=== PATIENT | female | born 1960 | race Caucasian/White ===

== ENCOUNTER 2018-04-07 10:56 | Outpatient (CLI) | payer OTHER ==
[~2018-04-07 10:56] MED LIST: NO HOME MEDS; PHEN-873 PO
[2018-04-07 13:43] LABS: BASOPHILS # (AUTO) 0.1 X10'3 (0-0.2); BASOPHILS % (AUTO) 0.9 % (0-1); EOSINOPHILS # (AUTO) 0.3 X10'3 (0-0.9); EOSINOPHILS % (AUTO) 4.4 % (0-6); HEMATOCRIT 42.8 % (35.0-45.0); HEMOGLOBIN 14.6 g/dl (12.0-16.0); LYMPHOCYTES # (AUTO) 2.1 X10'3 (1.1-4.8); LYMPHOCYTES % (AUTO) 28.2 % (21-51); MEAN CORPUSCULAR HEMOGLOBIN 28.1 PG (27.0-31.0); MEAN CORPUSCULAR HGB CONC 34.1 % (33.0-36.5); MEAN CORPUSCULAR VOLUME 82.3 FL (78-98); MEAN PLATELET VOLUME 9.8 FL (7.4-10.4); MONOCYTES # (AUTO) 0.7 X10'3 (0-0.9); MONOCYTES % (AUTO) 8.9 % (2-12); NEUTROPHILS # (AUTO) 4.4 X10'3 (1.8-7.7); NEUTROPHILS % (AUTO) 57.6 % (42-75); PLATELET COUNT 192 X10'3 (140-440); RED BLOOD COUNT 5.19 X10'6 (4.20-5.60); RED CELL DISTRIBUTION WIDTH 13.9 % (11.5-14.5); WHITE BLOOD COUNT 7.6 X10'3 (4.5-11.0)
[2018-04-07 13:49] LABS: CLARITY,URINE CLEAR (Clear); COLOR,URINE YELLOW (Yellow); GLUCOSE, URINE NEGATIVE (Neg); KETONES,URINE NEGATIVE (Neg); LEUKOCYTE ESTERASE ,URINE NEGATIVE (Neg); NITRITES, URINE NEGATIVE (Neg); OCCULT BLOOD,URINE NEGATIVE (Neg); PH,URINE 5.5 (4.8-8.0); PROTEIN,URINE NEGATIVE (Neg); UROBILINOGEN,URINE 0.2 E.U/dL (0.2-1.0)
[2018-04-07 13:51] LABS: UA COLLECTION TYPE CLN CATCH MIDSTREAM
[2018-04-07 14:08] LABS: ALANINE AMINOTRANSFERASE 25 U/L (12-78); ALBUMIN 3.7 G/DL (3.4-5.0); ALBUMIN/GLOBULIN RATIO 0.9 (1.1-1.5); ALKALINE PHOSPHATASE 77 IU/L (46-116); ANION GAP 7 (8-16); ASPARTATE AMINO TRANSFERASE 15 U/L (10-37); BILIRUBIN,TOTAL 0.5 MG/DL (0.1-1.0); BLOOD UREA NITROGEN 15 MG/DL (7-18); BUN/CREATININE RATIO 18.5 (6.6-38.0); CALCIUM 8.9 MG/DL (8.5-10.1); CHLORIDE 104 MMOL/L (99-107); CHOL/HDL RATIO 3.2 (0.00-4.99); CHOLESTEROL 229 MG/DL (0-200); CREATININE 0.81 MG/DL (0.40-0.90); GLUCOSE 95 MG/DL (70-104); HDL CHOLESTEROL 71 MG/DL (35-60); LDL CHOLESTEROL 151 MG/DL (50-100); POTASSIUM 3.7 MMOL/L (3.5-5.1); SODIUM 140 MMOL/L (135-145); TOTAL CARBON DIOXIDE 29.3 MMOL/L (24-32); TOTAL PROTEIN 7.7 G/DL (6.4-8.2); TRIGLYCERIDES 59 MG/DL (20-135); eGFR 73 ML/MIN
== END 2018-04-07 23:59 | disposition home or self-care (01) ==
LOC: RAD 10:56
PROVIDERS: ATTEND Family Medicine
DX: Z00.01 Encounter for general adult medical examination with abnormal findings (principal); M77.32 Calcaneal spur, left foot; M77.31 Calcaneal spur, right foot; R73.09 Other abnormal glucose
CPT/HCPCS: 36415; 73630; 80053; 80061; 81003; 82306; 83036; 84443; 84550; 85025

== ENCOUNTER 2019-05-19 10:47 | Outpatient (CLI) | payer OTHER ==
[~2019-05-19 10:47] MED LIST changes: +PHEN-786 PO; -PHEN-873 PO
[2019-05-19 16:04] LABS: BASOPHILS # (AUTO) 0.1 X10'3 (0-0.2); BASOPHILS % (AUTO) 0.7 % (0-1); EOSINOPHILS # (AUTO) 0.4 X10'3 (0-0.9); EOSINOPHILS % (AUTO) 4.4 % (0-6); HEMATOCRIT 44.2 % (35.0-45.0); HEMOGLOBIN 14.5 g/dl (12.0-16.0); LYMPHOCYTES # (AUTO) 1.7 X10'3 (1.1-4.8); LYMPHOCYTES % (AUTO) 16.8 % (21-51); MEAN CORPUSCULAR HGB CONC 32.9 g/dL (33.0-36.5); MEAN CORPUSCULAR VOLUME 82.2 FL (78-98); MEAN PLATELET VOLUME 9.7 FL (7.4-10.4); NEUTROPHILS # (AUTO) 6.7 X10'3 (1.8-7.7); NEUTROPHILS % (AUTO) 68.1 % (42-75); PLATELET COUNT 198 X10'3 (140-440); RED BLOOD COUNT 5.37 X10'6 (4.20-5.60); WHITE BLOOD COUNT 9.9 X10'3 (4.5-11.0)
[2019-05-19 16:09] LABS: HEMOGLOBIN A1C 6.4 % (4.5-6.2)
[2019-05-19 16:28] LABS: ALANINE AMINOTRANSFERASE 30 U/L (12-78); ALKALINE PHOSPHATASE 86 IU/L (46-116); ANION GAP 8 (8-16); ASPARTATE AMINO TRANSFERASE 18 U/L (10-37); BILIRUBIN,TOTAL 0.7 MG/DL (0.1-1.0); BLOOD UREA NITROGEN 15 MG/DL (7-18); BUN/CREATININE RATIO 18.5 (6.6-38.0); CALCIUM 8.8 MG/DL (8.5-10.1); CHLORIDE 104 MMOL/L (99-107); CHOL/HDL RATIO 4.1 (0.00-4.99); CHOLESTEROL 180 MG/DL (0-200); CREATININE 0.81 MG/DL (0.40-0.90); GLUCOSE 112 MG/DL (70-104); HDL CHOLESTEROL 44 MG/DL (35-60); LDL CHOLESTEROL 124 MG/DL (50-100); POTASSIUM 3.8 MMOL/L (3.5-5.1); SODIUM 140 MMOL/L (135-145); TOTAL CARBON DIOXIDE 28.1 MMOL/L (24-32); TOTAL PROTEIN 8.2 G/DL (6.4-8.2); TRIGLYCERIDES 84 MG/DL (20-135); eGFR 73 ML/MIN
== END 2019-05-19 23:59 | disposition home or self-care (01) ==
LOC: LAB 10:47
PROVIDERS: ATTEND Family Medicine
DX: Z00.00 Encounter for general adult medical examination without abnormal findings (principal); E03.9 Hypothyroidism, unspecified; I10 Essential (primary) hypertension; E78.2 Mixed hyperlipidemia; E55.9 Vitamin D deficiency, unspecified; R73.02 Impaired glucose tolerance (oral)
CPT/HCPCS: 36415; 80053; 80061; 82306; 83036; 84443; 85025

== ENCOUNTER 2019-05-19 20:42 | Emergency (ER) | payer OTHER ==
[~2019-05-19] VITALS: Ht 167.6 cm; Wt 95.5 kg
[2019-05-19 20:44] VITALS: BP 123/65
[2019-05-19] MEDS ORDERED: ibuprofen tablet 400 MG TABLET PO ONE (21:50)
[2019-05-19] MEDS ORDERED: ibuprofen 200mg tablet PO ONE (21:55)
== END 2019-05-19 22:30 | disposition home or self-care (01) ==
LOC: ER 20:43
DX: S52.121A Displaced fracture of head of right radius, initial encounter for closed fracture (principal); M25.561 Pain in right knee; Z90.710 Acquired absence of both cervix and uterus; Z79.899 Other long term (current) drug therapy; W18.39XA Other fall on same level, initial encounter; Y93.89 Activity, other specified; Y92.89 Other specified places as the place of occurrence of the external cause; Y99.8 Other external cause status
CPT/HCPCS: 73080; 99283

== ENCOUNTER 2019-05-27 15:53 | Outpatient (CLI) | payer OTHER | END 2019-05-27 23:59 | disposition home or self-care (01) | LOC: RAD 15:53 | PROVIDERS: ATTEND Family Medicine | DX: M25.531 Pain in right wrist (principal); W19.XXXA Unspecified fall, initial encounter; Y93.89 Activity, other specified; Y92.89 Other specified places as the place of occurrence of the external cause; Y99.8 Other external cause status | CPT/HCPCS: 73110 ==

== ENCOUNTER 2019-06-02 15:16 | Outpatient (CLI) | payer OTHER | END 2019-06-02 16:32 | disposition home or self-care (01) | LOC: ORTHO 15:16 | PROVIDERS: ATTEND Orthopaedic Surgery | DX: M24.521 Contracture, right elbow (principal) | CPT/HCPCS: 73080; G0463 ==

== ENCOUNTER 2020-06-07 09:17 | Outpatient (CLI) | payer BC ==
[2020-06-07 12:58] LABS: BASOPHILS # (AUTO) 0.1 X10'3 (0-0.2); BASOPHILS % (AUTO) 0.8 % (0-1); EOSINOPHILS # (AUTO) 0.3 X10'3 (0-0.9); EOSINOPHILS % (AUTO) 4.1 % (0-6); HEMATOCRIT 41.7 % (35.0-45.0); HEMOGLOBIN 13.6 g/dl (12.0-16.0); LYMPHOCYTES % (AUTO) 26.4 % (21-51); MEAN CORPUSCULAR HEMOGLOBIN 26.3 PG (27.0-31.0); MEAN CORPUSCULAR HGB CONC 32.5 g/dL (33.0-36.5); MEAN CORPUSCULAR VOLUME 80.8 FL (78-98); MEAN PLATELET VOLUME 8.8 FL (7.4-10.4); MONOCYTES # (AUTO) 0.8 X10'3 (0-0.9); MONOCYTES % (AUTO) 10.6 % (2-12); NEUTROPHILS # (AUTO) 4.4 X10'3 (1.8-7.7); NEUTROPHILS % (AUTO) 58.1 % (42-75); PLATELET COUNT 260 X10'3 (140-440); RED BLOOD COUNT 5.16 X10'6 (4.20-5.60); RED CELL DISTRIBUTION WIDTH 14.8 % (11.5-14.5); WHITE BLOOD COUNT 7.7 X10'3 (4.5-11.0)
[2020-06-07 13:08] LABS: CLARITY,URINE SLIGHTLY CLOUDY (Clear); COLOR,URINE YELLOW (Yellow); GLUCOSE, URINE NEGATIVE (Neg); KETONES,URINE NEGATIVE (Neg); LEUKOCYTE ESTERASE ,URINE TRACE (Neg); NITRITES, URINE NEGATIVE (Neg); OCCULT BLOOD,URINE NEGATIVE (Neg); PH,URINE 5.5 (4.8-8.0); PROTEIN,URINE NEGATIVE (Neg); UROBILINOGEN,URINE 0.2 E.U/dL (0.2-1.0)
[2020-06-07 13:09] LABS: UA COLLECTION TYPE CLN CATCH MIDSTREAM
[2020-06-07 13:20] LABS: WBC,URINE 0-4 /HPF (0-4)
[2020-06-07 13:21] LABS: RBC,URINE NONE SEEN /HPF (0-2)
[2020-06-07 13:22] LABS: BACTERIA,URINE NONE SEEN /HPF (Neg); MUCUS STRANDS MANY /LPF (Neg); SQUAMOUS EPITHELIAL CELL,UR FEW /LPF (FEW)
[2020-06-07 13:22] LABS: ALANINE AMINOTRANSFERASE 28 U/L (12-78); ALBUMIN 3.3 G/DL (3.4-5.0); ALBUMIN/GLOBULIN RATIO 0.7 (1.1-1.5); ALKALINE PHOSPHATASE 90 IU/L (46-116); ANION GAP 4 (8-16); ASPARTATE AMINO TRANSFERASE 24 U/L (10-37); BILIRUBIN,TOTAL 0.5 MG/DL (0.1-1.0); BLOOD UREA NITROGEN 16 MG/DL (7-18); CALCIUM 8.9 MG/DL (8.5-10.1); CHLORIDE 103 MMOL/L (99-107); CHOL/HDL RATIO 3.8 (0.00-4.99); CHOLESTEROL 147 MG/DL (0-200); GLUCOSE 99 MG/DL (70-104); HDL CHOLESTEROL 39 MG/DL (35-60); HEMOGLOBIN A1C 7.2 % (4.5-6.2); LDL CHOLESTEROL 97 MG/DL (50-100); POTASSIUM 3.7 MMOL/L (3.5-5.1); SODIUM 139 MMOL/L (135-145); TOTAL CARBON DIOXIDE 31.8 MMOL/L (24-32); TOTAL PROTEIN 8.3 G/DL (6.4-8.2); TRIGLYCERIDES 94 MG/DL (20-135); eGFR 73 ML/MIN
== END 2020-06-07 23:59 | disposition home or self-care (01) ==
LOC: LAB 09:17
PROVIDERS: ATTEND Family Medicine
DX: Z00.00 Encounter for general adult medical examination without abnormal findings (principal)
CPT/HCPCS: 36415; 80053; 80061; 81001; 82306; 83036; 84443; 85025

== ENCOUNTER 2020-08-25 16:24 | Inpatient (IN) | payer BC, OTHER ==
[~2020-08-25] VITALS: Ht 167.6 cm; Wt 116.8 kg
[2020-08-25 17:38] LABS: ALANINE AMINOTRANSFERASE 36 U/L (12-78); ALBUMIN/GLOBULIN RATIO 0.6 (1.1-1.5); ALKALINE PHOSPHATASE 76 IU/L (46-116); ANION GAP 9 (8-16); ASPARTATE AMINO TRANSFERASE 51 U/L (10-37); BILIRUBIN,TOTAL 0.6 MG/DL (0.1-1.0); BLOOD UREA NITROGEN 12 MG/DL (7-18); BUN/CREATININE RATIO 14.1 (6.6-38.0); CALCIUM 8.5 MG/DL (8.5-10.1); CHLORIDE 101 MMOL/L (99-107); CREATININE 0.85 MG/DL (0.40-0.90); GLUCOSE 102 MG/DL (70-104); POTASSIUM 3.3 MMOL/L (3.5-5.1); SODIUM 138 MMOL/L (135-145); TOTAL CARBON DIOXIDE 27.6 MMOL/L (24-32); eGFR 68 ML/MIN
[2020-08-25 17:51] LABS: C-REACTIVE PROTEIN 5.28 MG/DL (0.0-0.5); FERRITIN 160 NG/ML (8-252); LACTATE DEHYDROGENASE 243 U/L (81-234)
[2020-08-25 18:09] LABS: BASOPHILS % (AUTO) 0.7 % (0-1); EOSINOPHILS % (AUTO) 0.3 % (0-6); HEMATOCRIT 42.3 % (35.0-45.0); HEMOGLOBIN 14.2 g/dl (12.0-16.0); LYMPHOCYTES # (AUTO) 0.8 X10'3 (1.1-4.8); LYMPHOCYTES % (AUTO) 18.8 % (21-51); MEAN CORPUSCULAR HEMOGLOBIN 27.1 PG (27.0-31.0); MEAN CORPUSCULAR HGB CONC 33.6 g/dL (33.0-36.5); MEAN CORPUSCULAR VOLUME 80.5 FL (78-98); MEAN PLATELET VOLUME 8.3 FL (7.4-10.4); MONOCYTES # (AUTO) 0.5 X10'3 (0-0.9); MONOCYTES % (AUTO) 10.2 % (2-12); NEUTROPHILS # (AUTO) 3.1 X10'3 (1.8-7.7); PLATELET COUNT 164 X10'3 (140-440); RED BLOOD COUNT 5.25 X10'6 (4.20-5.60); RED CELL DISTRIBUTION WIDTH 15.6 % (11.5-14.5); WHITE BLOOD COUNT 4.5 X10'3 (4.5-11.0)
--- NOTE | 2020-08-25 18:45 | NUR ---
Reported HTN to Dr. Gallardo
[2020-08-25] MEDS ORDERED: DEXAMETHASONE 6 MG TABLET PO ONE (19:35)
[2020-08-25] MEDS ORDERED: enoxaparin 100mg/ml syringe SUBCUT ONE (19:35)
[2020-08-25] MEDS ORDERED: DEXAMETHASONE 6 MG TABLET PO SCH (19:35)
[2020-08-25] MEDS ORDERED: LOSA25TA41 PO (19:36)
[2020-08-25] MEDS ORDERED: RESTASIS (19:36)
[2020-08-25] MEDS ORDERED: ATOR40TA72 PO (19:36)
[2020-08-25 19:56] LABS: D-DIMER 0.84 MG/L FEU (0-0.50)
[2020-08-25] MEDS ORDERED: ondansetron/PF 4mg/2ml inj IV PRN (20:00)
[2020-08-25] MEDS: K and/or MAG REPLACEMENT MC SCH (20:00)
[2020-08-25] MEDS ORDERED: potassium Cl 20 mEq SR tablet PO PRN ×2 (20:00)
[2020-08-25] MEDS ORDERED: HYDROcodone/acetaminophen 5mg/325mg tablet PO PRN (20:00)
[2020-08-25] MEDS ORDERED: mag hydrox/Alum hydrox/simeth 30ml oral suspension PO PRN (20:00)
[2020-08-25] MEDS ORDERED: enoxaparin 40mg/0.4ml syringe SUBCUT SCH (20:00)
[2020-08-25] MEDS ORDERED: acetaminophen 325mg tablet PO PRN (20:00)
[2020-08-25] MEDS ORDERED: magnesium hydroxide 30ml (MOM) UD suspension PO PRN (20:00)
[2020-08-25] MEDS ORDERED: potassium CL 10mEq/100ml bag 100 ML IV PRN ×2 (20:00)
[2020-08-25] MEDS: enoxaparin 40mg/0.4ml syringe SQ ONE ×2 (20:04→20:12)
[2020-08-25] MEDS ORDERED: glucagon, human recombinant 1mg kit SUBCUT PRN (20:10)
[2020-08-25] MEDS ORDERED: MESSAGE TO PHARMACY PO ONE (20:10)
[2020-08-25] MEDS ORDERED: dextrose 50%-water 50ml dispensing syringe IV PRN ×2 (20:10)
[2020-08-25] MEDS ORDERED: insulin Lispro (HumaLOG) vial - multi-dose SQ SCH (20:10)
[2020-08-25] MEDS ORDERED: dextrose ORAL solution 15 GM/59 ML bottle PO PRN ×2 (20:10)
[2020-08-25] MEDS ORDERED: enoxaparin 80mg/0.8ml syringe SUBCUT ONE (20:15)
[2020-08-25] MEDS ORDERED: METF-900 PO (20:16)
[2020-08-25 20:24] LABS: HEMOGLOBIN A1C 7.1 % (4.5-6.2)
[2020-08-25 23:20] VITALS: BP 136/75
[2020-08-26 05:52] VITALS: BP 131/78
[2020-08-26 07:15] LABS: ALANINE AMINOTRANSFERASE 36 U/L (12-78); ALBUMIN 3.1 G/DL (3.4-5.0); ALBUMIN/GLOBULIN RATIO 0.6 (1.1-1.5); ALKALINE PHOSPHATASE 73 IU/L (46-116); ANION GAP 11 (8-16); ASPARTATE AMINO TRANSFERASE 52 U/L (10-37); BILIRUBIN,TOTAL 0.6 MG/DL (0.1-1.0); BLOOD UREA NITROGEN 14 MG/DL (7-18); BUN/CREATININE RATIO 17.5 (6.6-38.0); CALCIUM 8.7 MG/DL (8.5-10.1); CHLORIDE 103 MMOL/L (99-107); GLUCOSE 158 MG/DL (70-104); POTASSIUM 3.9 MMOL/L (3.5-5.1); SODIUM 139 MMOL/L (135-145); TOTAL CARBON DIOXIDE 25.4 MMOL/L (24-32); TOTAL PROTEIN 8.2 G/DL (6.4-8.2); eGFR 73 ML/MIN
[2020-08-26] MEDS: K and/or MAG REPLACEMENT MC SCH ×2 (08:00→19:49)
[2020-08-26] MEDS ORDERED: losartan 25mg tablet PO SCH ×2 (08:00→21:00)
[2020-08-26] MEDS ORDERED: atorvastatin 20mg tablet PO SCH (08:00)
[2020-08-26] MEDS: cycloSPORINE 0.05% ophthalmic emulsion EACHEYE SCH ×2 (08:00→20:14)
[2020-08-26] MEDS: enoxaparin 80mg/0.8ml syringe SUBCUT SCH ×2 (08:07→20:14)
[2020-08-26 08:11] VITALS: BP 126/80
[2020-08-26 09:10] LABS: EOSINOPHILS % (AUTO) 0 % (0-6); HEMATOCRIT 42.1 % (35.0-45.0); LYMPHOCYTES # (AUTO) 0.9 X10'3 (1.1-4.8); MONOCYTES # (AUTO) 0.3 X10'3 (0-0.9); NEUTROPHILS # (AUTO) 2.1 X10'3 (1.8-7.7); NEUTROPHILS % (AUTO) 64.3 % (42-75)
[2020-08-26 09:12] LABS: BASOPHILS % (AUTO) 0.2 % (0-1); LYMPHOCYTES % (AUTO) 27.6 % (21-51); MEAN CORPUSCULAR HEMOGLOBIN 26.6 PG (27.0-31.0); MEAN CORPUSCULAR HGB CONC 33.3 g/dL (33.0-36.5); MONOCYTES % (AUTO) 7.9 % (2-12); RED BLOOD COUNT 5.27 X10'6 (4.20-5.60); RED CELL DISTRIBUTION WIDTH 15.6 % (11.5-14.5); WHITE BLOOD COUNT 3.2 X10'3 (4.5-11.0)
[2020-08-26 09:29] LABS: MEAN PLATELET VOLUME 7.2 FL (7.4-10.4); PLATELET COUNT 164 X10'3 (140-440)
[2020-08-26] MEDS ORDERED: dexamethasone 1mg tablet PO SCH (10:05)
[2020-08-26 10:37] LABS: C-REACTIVE PROTEIN 5.76 MG/DL (0.0-0.5)
[2020-08-26 11:05] LABS: D-DIMER 0.82 MG/L FEU (0-0.50)
[2020-08-26] MEDS ORDERED: DEXAMETHASONE 6 MG TABLET PO ONE ×2 (12:25→15:25)
[2020-08-26 12:47] VITALS: BP 134/86
--- NOTE | 2020-08-26 14:34 | NUR ---
DM consult: Pt with A1c 7.1%, admit with COVID-19. Written DM education and RD contact information placed in patient's chart. Will remain available. Addendum: 08/26/20 at [address] Amended: Links added.
[2020-08-26] MEDS ORDERED: REMDESIVIR 100MG inj. 200 MG in normal saline 100ml IV soln 100 ML IV ONE (14:35)
[2020-08-26 17:45] VITALS: BP 129/83
--- NOTE | 2020-08-26 18:16 | NUR ---
Problems reprioritized. Patient report given, questions answered & plan of care reviewed with say STEPHENSON.
--- NOTE | 2020-08-26 18:43 | NUR ---
Patient in room [facility]TH[facility] 4008. I have received report from Kaur STEPHENSON and had the opportunity to ask questions and assume patient care.
[2020-08-26] MEDS: atorvastatin 20mg tablet PO SCH (20:15)
[2020-08-26 20:21] VITALS: BP 134/71
[2020-08-27 06:00] VITALS: BP 125/76
[2020-08-27 06:09] LABS: D-DIMER 0.64 MG/L FEU (0-0.50)
[2020-08-27 06:25] LABS: ALANINE AMINOTRANSFERASE 35 U/L (12-78); ALBUMIN 2.9 G/DL (3.4-5.0); ALBUMIN/GLOBULIN RATIO 0.6 (1.1-1.5); ALKALINE PHOSPHATASE 68 IU/L (46-116); ANION GAP 10 (8-16); ASPARTATE AMINO TRANSFERASE 44 U/L (10-37); BILIRUBIN,TOTAL 0.5 MG/DL (0.1-1.0); BLOOD UREA NITROGEN 18 MG/DL (7-18); C-REACTIVE PROTEIN 3.12 MG/DL (0.0-0.5); CALCIUM 8.7 MG/DL (8.5-10.1); CHLORIDE 104 MMOL/L (99-107); CREATININE 0.75 MG/DL (0.40-0.90); GLUCOSE 132 MG/DL (70-104); LACTATE DEHYDROGENASE 243 U/L (81-234); SODIUM 142 MMOL/L (135-145); TOTAL CARBON DIOXIDE 28.4 MMOL/L (24-32); TOTAL PROTEIN 7.9 G/DL (6.4-8.2); eGFR 79 ML/MIN
--- NOTE | 2020-08-27 06:31 | NUR ---
Problems reprioritized. Patient report given, questions answered & plan of care reviewed with Leann STEPHENSON.
[2020-08-27] MEDS: DEXAMETHASONE 6 MG TABLET PO SCH (07:32)
[2020-08-27] MEDS: cycloSPORINE 0.05% ophthalmic emulsion EACHEYE SCH ×2 (07:32→20:53)
[2020-08-27] MEDS: enoxaparin 80mg/0.8ml syringe SUBCUT SCH ×2 (07:33→20:53)
[2020-08-27] MEDS: K and/or MAG REPLACEMENT MC SCH ×2 (08:00→20:00)
[2020-08-27 08:15] LABS: BASOPHILS % (AUTO) 0.3 % (0-1); EOSINOPHILS % (AUTO) 0 % (0-6); HEMATOCRIT 42.4 % (35.0-45.0); HEMOGLOBIN 14.2 g/dl (12.0-16.0); LYMPHOCYTES # (AUTO) 1.4 X10'3 (1.1-4.8); LYMPHOCYTES % (AUTO) 15.7 % (21-51); MEAN CORPUSCULAR HGB CONC 33.5 g/dL (33.0-36.5); MEAN CORPUSCULAR VOLUME 80.5 FL (78-98); MONOCYTES # (AUTO) 0.7 X10'3 (0-0.9); MONOCYTES % (AUTO) 7.9 % (2-12); NEUTROPHILS # (AUTO) 6.5 X10'3 (1.8-7.7); NEUTROPHILS % (AUTO) 76.1 % (42-75); RED BLOOD COUNT 5.27 X10'6 (4.20-5.60); RED CELL DISTRIBUTION WIDTH 15.6 % (11.5-14.5)
[2020-08-27 08:22] LABS: WHITE BLOOD COUNT 8.6 X10'3 (4.5-11.0)
[2020-08-27 08:23] LABS: PLATELET COUNT 216 X10'3 (140-440)
[2020-08-27] MEDS: REMDESIVIR 100MG inj. 100 MG in normal saline 100ml IV soln 100 ML IV SCH (08:59)
[2020-08-27 10:00] VITALS: BP 135/82
--- NOTE | 2020-08-27 18:14 | NUR ---
Problems reprioritized. Patient report given, questions answered & plan of care reviewed with Kendra STEPHENSON.
--- NOTE | 2020-08-27 18:22 | NUR ---
Patient in room ORTH[facility] 4008. I have received report from Leann STEPHENSON and had the opportunity to ask questions and assume patient care.
[2020-08-27 18:39] VITALS: BP 133/91
[2020-08-27 20:54] VITALS: BP 141/68
[2020-08-27] MEDS: losartan 25mg tablet PO SCH (20:54)
[2020-08-27] MEDS: atorvastatin 20mg tablet PO SCH (20:54)
--- NOTE | 2020-08-27 21:20 | NUR ---
Pt. had two BS levels over 160. She met our protocol guidelines. She was apprehensive about taking the Lantus. Stated she has never taken any insulin before. Pt. stated she also has been drinking mountain dew. Educated pt. to slow down on the soda due to it causing an increase in BS levels. She declined to take the Lantus dose and decided to reevaluate her BS levels in the morning. Will continue to monitor, and educate pt. Addendum: 08/27/20 at 2123 by Kendra Park RN Amended: Links added. Addendum: 08/27/20 at 2130 by Kendra Park RN * Night time insulin (not specifically Lantus).
[2020-08-28 05:05] VITALS: BP 125/74
[2020-08-28 05:38] LABS: BASOPHILS % (AUTO) 0.2 % (0-1); EOSINOPHILS % (AUTO) 0 % (0-6); HEMATOCRIT 41.5 % (35.0-45.0); HEMOGLOBIN 13.8 g/dl (12.0-16.0); LYMPHOCYTES # (AUTO) 1.8 X10'3 (1.1-4.8); MEAN CORPUSCULAR HEMOGLOBIN 26.5 PG (27.0-31.0); MEAN CORPUSCULAR HGB CONC 33.1 g/dL (33.0-36.5); MEAN CORPUSCULAR VOLUME 80.1 FL (78-98); MEAN PLATELET VOLUME 8.4 FL (7.4-10.4); MONOCYTES % (AUTO) 12.3 % (2-12); NEUTROPHILS # (AUTO) 5.6 X10'3 (1.8-7.7); NEUTROPHILS % (AUTO) 66.5 % (42-75); RED BLOOD COUNT 5.18 X10'6 (4.20-5.60); RED CELL DISTRIBUTION WIDTH 15.9 % (11.5-14.5); WHITE BLOOD COUNT 8.4 X10'3 (4.5-11.0)
[2020-08-28 05:40] LABS: PLATELET COUNT 218 X10'3 (140-440)
[2020-08-28 05:55] LABS: ALANINE AMINOTRANSFERASE 29 U/L (12-78); ALBUMIN 2.8 G/DL (3.4-5.0); ALBUMIN/GLOBULIN RATIO 0.6 (1.1-1.5); ALKALINE PHOSPHATASE 66 IU/L (46-116); ANION GAP 8 (8-16); ASPARTATE AMINO TRANSFERASE 30 U/L (10-37); BILIRUBIN,TOTAL 0.5 MG/DL (0.1-1.0); BLOOD UREA NITROGEN 21 MG/DL (7-18); BUN/CREATININE RATIO 28.4 (6.6-38.0); C-REACTIVE PROTEIN 2.16 MG/DL (0.0-0.5); CALCIUM 8.6 MG/DL (8.5-10.1); CHLORIDE 105 MMOL/L (99-107); CREATININE 0.74 MG/DL (0.40-0.90); GLUCOSE 108 MG/DL (70-104); LACTATE DEHYDROGENASE 227 U/L (81-234); POTASSIUM 3.5 MMOL/L (3.5-5.1); SODIUM 141 MMOL/L (135-145); TOTAL PROTEIN 7.7 G/DL (6.4-8.2); eGFR 80 ML/MIN
--- NOTE | 2020-08-28 06:05 | NUR ---
Patient in room ORTH[facility] 4008. I have received report from Kendra and had the opportunity to ask questions and assume patient care.
--- NOTE | 2020-08-28 06:09 | NUR ---
Problems reprioritized. Patient report given, questions answered & plan of care reviewed with Lori STEPHENSON.
--- NOTE | 2020-08-28 07:04 | NUR ---
Page Sent promotional table spacer PAGER ID: [phone] MESSAGE: [phone] Karrie Butler Pt has had her blood sugars taken the last 3 days and hasn't met protocol january I DC the 4 times a day finger sticks please. A1c is 7.1. #[id number] Lori (166 character message out of a maximum of 240)
--- NOTE | 2020-08-28 07:43 | NUR ---
Dr Marie called and said to decrease blood sugars to before bed and PRN
[2020-08-28] MEDS: K and/or MAG REPLACEMENT MC SCH ×2 (08:00→20:00)
[2020-08-28] MEDS: cycloSPORINE 0.05% ophthalmic emulsion EACHEYE SCH ×2 (08:00→20:00)
[2020-08-28] MEDS: REMDESIVIR 100MG inj. 100 MG in normal saline 100ml IV soln 100 ML IV SCH (08:28)
[2020-08-28] MEDS: DEXAMETHASONE 6 MG TABLET PO SCH (08:29)
[2020-08-28] MEDS: enoxaparin 80mg/0.8ml syringe SUBCUT SCH ×2 (08:29→19:58)
[2020-08-28] MEDS: ALBUTEROL INHALER 1 PUFF/90 MCG INHALER IH PRN ×2 (08:56→20:01)
[2020-08-28 09:00] VITALS: BP 120/75
--- NOTE | 2020-08-28 18:24 | NUR ---
Problems reprioritized. Patient report given, questions answered & plan of care reviewed with Deborah.
[2020-08-28 19:00] VITALS: BP 132/83
[2020-08-28] MEDS: losartan 25mg tablet PO SCH (19:54)
[2020-08-28] MEDS: atorvastatin 20mg tablet PO SCH (19:55)
[2020-08-28 23:00] VITALS: BP 116/66
[2020-08-29 07:11] LABS: BASOPHILS % (AUTO) 0.3 % (0-1); EOSINOPHILS % (AUTO) 0.1 % (0-6); HEMATOCRIT 44.4 % (35.0-45.0); HEMOGLOBIN 14.6 g/dl (12.0-16.0); LYMPHOCYTES # (AUTO) 2.3 X10'3 (1.1-4.8); LYMPHOCYTES % (AUTO) 32.2 % (21-51); MEAN CORPUSCULAR HEMOGLOBIN 26.2 PG (27.0-31.0); MEAN CORPUSCULAR HGB CONC 32.8 g/dL (33.0-36.5); MEAN CORPUSCULAR VOLUME 79.9 FL (78-98); MONOCYTES # (AUTO) 1.1 X10'3 (0-0.9); NEUTROPHILS # (AUTO) 3.8 X10'3 (1.8-7.7); NEUTROPHILS % (AUTO) 52.4 % (42-75); PLATELET COUNT 283 X10'3 (140-440); RED BLOOD COUNT 5.56 X10'6 (4.20-5.60); RED CELL DISTRIBUTION WIDTH 16.3 % (11.5-14.5); WHITE BLOOD COUNT 7.2 X10'3 (4.5-11.0)
[2020-08-29 07:33] LABS: D-DIMER 0.47 MG/L FEU (0-0.50)
[2020-08-29 07:50] LABS: ALANINE AMINOTRANSFERASE 36 U/L (12-78); ALBUMIN 3.2 G/DL (3.4-5.0); ALBUMIN/GLOBULIN RATIO 0.6 (1.1-1.5); ALKALINE PHOSPHATASE 76 IU/L (46-116); ANION GAP 9 (8-16); ASPARTATE AMINO TRANSFERASE 24 U/L (10-37); BILIRUBIN,TOTAL 0.6 MG/DL (0.1-1.0); BLOOD UREA NITROGEN 18 MG/DL (7-18); BUN/CREATININE RATIO 20.5 (6.6-38.0); C-REACTIVE PROTEIN 1.99 MG/DL (0.0-0.5); CHLORIDE 104 MMOL/L (99-107); CREATININE 0.88 MG/DL (0.40-0.90); GLUCOSE 99 MG/DL (70-104); LACTATE DEHYDROGENASE 227 U/L (81-234); POTASSIUM 3.1 MMOL/L (3.5-5.1); SODIUM 143 MMOL/L (135-145); TOTAL CARBON DIOXIDE 30.3 MMOL/L (24-32); TOTAL PROTEIN 8.7 G/DL (6.4-8.2); eGFR 66 ML/MIN
[2020-08-29] MEDS: cycloSPORINE 0.05% ophthalmic emulsion EACHEYE SCH ×2 (08:00→20:00)
[2020-08-29] MEDS: K and/or MAG REPLACEMENT MC SCH ×2 (08:00→20:00)
[2020-08-29] MEDS: DEXAMETHASONE 6 MG TABLET PO SCH (08:08)
[2020-08-29] MEDS: REMDESIVIR 100MG inj. 100 MG in normal saline 100ml IV soln 100 ML IV SCH (08:08)
[2020-08-29] MEDS: enoxaparin 80mg/0.8ml syringe SUBCUT SCH ×2 (08:09→21:56)
[2020-08-29 10:16] LABS: TOTAL CELLS COUNTED 100
[2020-08-29 10:17] LABS: ANISOCYTOSIS 1+; MICROCYTOSIS 1+; PLATELET ESTIMATE NORMAL
[2020-08-29 10:58] VITALS: BP 112/64
[2020-08-29] MEDS ORDERED: potassium CL 10mEq/100ml bag 100 ML IV PRN (12:10)
[2020-08-29] MEDS ORDERED: potassium Cl 20 mEq SR tablet PO PRN (12:10)
[2020-08-29] MEDS ORDERED: magnesium Cl slow-release 64mg tablet PO PRN (12:10)
[2020-08-29] MEDS ORDERED: magnesium 4gm in 100ml NS 100 ML IV PRN (12:10)
--- NOTE | 2020-08-29 12:12 | NUR ---
Patient K+ lab was 3.1 will start replacement Lab never called in results.
[2020-08-29 12:34] LABS: MAGNESIUM 2.5 MG/DL (1.5-2.4)
[2020-08-29] MEDS: potassium Cl 20 mEq SR tablet PO PRN ×2 (13:03→22:08)
--- NOTE | 2020-08-29 18:40 | NUR ---
Problems reprioritized. Patient report given, questions answered & plan of care reviewed with
[2020-08-29 18:55] VITALS: BP 121/80
[2020-08-29] MEDS ORDERED: K and/or MAG REPLACEMENT MC SCH (20:00)
[2020-08-29] MEDS: losartan 25mg tablet PO SCH (21:53)
[2020-08-29] MEDS: atorvastatin 20mg tablet PO SCH (21:53)
[2020-08-29 22:05] VITALS: BP 125/85
[2020-08-30 05:14] VITALS: BP 128/81
[2020-08-30 06:43] LABS: BASOPHILS % (AUTO) 0.3 % (0-1); EOSINOPHILS % (AUTO) 0.2 % (0-6); HEMOGLOBIN 13.9 g/dl (12.0-16.0); LYMPHOCYTES % (AUTO) 28.4 % (21-51); MEAN CORPUSCULAR HEMOGLOBIN 26.5 PG (27.0-31.0); MEAN CORPUSCULAR HGB CONC 33.1 g/dL (33.0-36.5); MEAN CORPUSCULAR VOLUME 80.1 FL (78-98); MEAN PLATELET VOLUME 8.5 FL (7.4-10.4); MONOCYTES # (AUTO) 0.8 X10'3 (0-0.9); MONOCYTES % (AUTO) 11.7 % (2-12); NEUTROPHILS # (AUTO) 4.1 X10'3 (1.8-7.7); NEUTROPHILS % (AUTO) 59.4 % (42-75); RED BLOOD COUNT 5.24 X10'6 (4.20-5.60); WHITE BLOOD COUNT 6.9 X10'3 (4.5-11.0)
[2020-08-30 06:46] LABS: PLATELET COUNT 270 X10'3 (140-440)
[2020-08-30 06:57] LABS: ALANINE AMINOTRANSFERASE 33 U/L (12-78); ALBUMIN 2.8 G/DL (3.4-5.0); ALBUMIN/GLOBULIN RATIO 0.6 (1.1-1.5); ALKALINE PHOSPHATASE 67 IU/L (46-116); ANION GAP 6 (8-16); ASPARTATE AMINO TRANSFERASE 22 U/L (10-37); BILIRUBIN,TOTAL 0.4 MG/DL (0.1-1.0); BLOOD UREA NITROGEN 17 MG/DL (7-18); BUN/CREATININE RATIO 26.2 (6.6-38.0); C-REACTIVE PROTEIN 1.09 MG/DL (0.0-0.5); CALCIUM 8.7 MG/DL (8.5-10.1); CHLORIDE 107 MMOL/L (99-107); CREATININE 0.65 MG/DL (0.40-0.90); GLUCOSE 99 MG/DL (70-104); LACTATE DEHYDROGENASE 180 U/L (81-234); MAGNESIUM 2.1 MG/DL (1.5-2.4); POTASSIUM 4.1 MMOL/L (3.5-5.1); SODIUM 142 MMOL/L (135-145); TOTAL PROTEIN 7.6 G/DL (6.4-8.2); eGFR > 90 ML/MIN
[2020-08-30] MEDS: cycloSPORINE 0.05% ophthalmic emulsion EACHEYE SCH ×2 (08:00→20:10)
[2020-08-30] MEDS: K and/or MAG REPLACEMENT MC SCH ×2 (08:00→20:00)
[2020-08-30 08:30] LABS: D-DIMER 1.44 MG/L FEU (0-0.50)
[2020-08-30] MEDS: DEXAMETHASONE 6 MG TABLET PO SCH (08:53)
[2020-08-30] MEDS: REMDESIVIR 100MG inj. 100 MG in normal saline 100ml IV soln 100 ML IV SCH (08:54)
[2020-08-30] MEDS: enoxaparin 80mg/0.8ml syringe SUBCUT SCH ×2 (08:54→20:15)
[2020-08-30 10:00] VITALS: BP 119/69
--- NOTE | 2020-08-30 10:54 | NUR ---
Initial: Pt admit DX COVID-19 PNA and acute respiratory failure per EMR. PO ~25-50% avg meals fluctuating not meeting needs. COLLEEN recommended Glucerna TIDWM; likely to tolerating liquids kcal/protein better at this time. notified. Lactate dehydrogenase now WNL and CRP down to 10/08 from 5.28 on admit. LBM 08/29. Will continue to monitor for additional protein needs. Rec: 1. continue carb controlled diet; encourage PO 2. Glucerna TIDWM 3. routine bowel care 4. scaled wt this admit Addendum: 08/30/20 at [address] Amended: Links added.
[2020-08-30] MEDS: losartan 25mg tablet PO SCH (20:14)
[2020-08-30] MEDS: atorvastatin 20mg tablet PO SCH (20:14)
[2020-08-30 20:22] VITALS: BP 129/75
[2020-08-31 05:35] VITALS: BP 121/72
--- NOTE | 2020-08-31 05:46 | NUR ---
Per patient she slept without oxygen till about 0400 this morning but was starting to get a slight headache so she put it back on. I received no calls from telemetry r/t patient desating during the night the patient reports according to her telemetry box her oxygen saturation was 90-92 with out oxygen and then jumped to 94-95 with the 2L of oxygen on. Patient is currently wearing her nasal canula which has now been titrated down to 1L. Will continue to monitor.
--- NOTE | 2020-08-31 06:29 | NUR ---
Report given to Delano STEPHENSON.
[2020-08-31 07:08] LABS: D-DIMER 0.25 MG/L FEU (0-0.50)
[2020-08-31 07:20] LABS: C-REACTIVE PROTEIN 0.68 MG/DL (0.0-0.5)
[2020-08-31] MEDS: K and/or MAG REPLACEMENT MC SCH (08:00)
[2020-08-31] MEDS: cycloSPORINE 0.05% ophthalmic emulsion EACHEYE SCH (09:15)
[2020-08-31] MEDS: DEXAMETHASONE 6 MG TABLET PO SCH (09:15)
[2020-08-31] MEDS: enoxaparin 80mg/0.8ml syringe SUBCUT SCH (09:15)
[2020-08-31 15:01] VITALS: BP 131/72
[2020-08-31] MEDS ORDERED: DEC1T PO (15:25)
[2020-08-31] MEDS ORDERED: ALBU8.5H8 IH (15:25)
--- NOTE | 2020-09-01 05:34 | NUR ---
pt called states [facility] in [place] not showing record of RX: Dexamethasone. Explained will inform dayshift charge so they can call in once pharmacy opens after 0800
== END 2020-08-31 17:21 | disposition home or self-care (01) | DRG 177 ==
LOC: ER 16:24 → ED HOLD 19:59 → ORTHO 4S 23:00
PROVIDERS: ADMIT Internal Medicine; ATTEND Family Medicine
PROC: XW033E5 Introduction of Remdesivir Anti-infective into Peripheral Vein, Percutaneous Approach, New Technology Group 5 (ICD-10-PCS; principal; 2020-08-26)
DX: U07.1 COVID-19 (principal); J12.89 Other viral pneumonia; J96.01 Acute respiratory failure with hypoxia; Z68.41 Body mass index [BMI] 40.0-44.9, adult; E11.9 Type 2 diabetes mellitus without complications; E66.01 Morbid (severe) obesity due to excess calories; E78.5 Hyperlipidemia, unspecified; E87.6 Hypokalemia; I10 Essential (primary) hypertension; Z90.710 Acquired absence of both cervix and uterus; Z98.84 Bariatric surgery status
CPT/HCPCS: 36415; 71045; 80053; 82728; 82948; 83036; 83605; 83615; 83735; 83880; 84132; 84145; 85007; 85025; 85379; 85384; 86140; 87040; 87081; 94760; 96372; 99285; G0378; J1650; J1815; J8540

== ENCOUNTER → 2021-04-28 | Outpatient (CLI) | payer BC ==
[~2021-04-28] MED LIST changes: +ALBU8.5H17 IH; +ATOR40TA72 PO; +LOSA25TA41 PO; +METF-900 PO; -NO HOME MEDS; -PHEN-786 PO; +RESTASIS
== END | disposition home or self-care (01) ==
LOC: RAD 15:59
PROVIDERS: ATTEND Family Medicine
DX: Z00.00 Encounter for general adult medical examination without abnormal findings (principal)

== ENCOUNTER 2021-05-23 09:58 | Outpatient (CLI) | payer BC ==
[2021-05-23 13:07] LABS: BASOPHILS # (AUTO) 0.1 X10'3 (0-0.2); BASOPHILS % (AUTO) 0.9 % (0-1); EOSINOPHILS # (AUTO) 0.5 X10'3 (0-0.9); HEMATOCRIT 43.4 % (35.0-45.0); HEMOGLOBIN 14.4 g/dl (12.0-16.0); LYMPHOCYTES # (AUTO) 2.2 X10'3 (1.1-4.8); LYMPHOCYTES % (AUTO) 28.7 % (21-51); MEAN CORPUSCULAR HEMOGLOBIN 27.5 PG (27.0-31.0); MEAN CORPUSCULAR HGB CONC 33.1 g/dL (33.0-36.5); MEAN PLATELET VOLUME 9.3 FL (7.4-10.4); MONOCYTES # (AUTO) 0.7 X10'3 (0-0.9); MONOCYTES % (AUTO) 9.6 % (2-12); NEUTROPHILS # (AUTO) 4.1 X10'3 (1.8-7.7); NEUTROPHILS % (AUTO) 54.8 % (42-75); PLATELET COUNT 203 X10'3 (140-440); RED BLOOD COUNT 5.23 X10'6 (4.20-5.60); RED CELL DISTRIBUTION WIDTH 14.6 % (11.5-14.5); WHITE BLOOD COUNT 7.5 X10'3 (4.5-11.0)
[2021-05-23 13:09] LABS: CLARITY,URINE CLEAR (Clear); COLOR,URINE YELLOW (Yellow); GLUCOSE, URINE NEGATIVE (Neg); KETONES,URINE NEGATIVE (Neg); LEUKOCYTE ESTERASE ,URINE NEGATIVE (Neg); NITRITES, URINE NEGATIVE (Neg); OCCULT BLOOD,URINE NEGATIVE (Neg); PROTEIN,URINE NEGATIVE (Neg); UROBILINOGEN,URINE 0.2 E.U/dL (0.2-1.0)
[2021-05-23 13:14] LABS: UA COLLECTION TYPE CLN CATCH MIDSTREAM
[2021-05-23 13:31] LABS: ALANINE AMINOTRANSFERASE 25 U/L (12-78); ALBUMIN 3.8 G/DL (3.4-5.0); ALKALINE PHOSPHATASE 104 IU/L (46-116); ANION GAP 6 (8-16); ASPARTATE AMINO TRANSFERASE 20 U/L (10-37); BILIRUBIN,TOTAL 0.6 MG/DL (0.1-1.0); BLOOD UREA NITROGEN 18 MG/DL (7-18); CALCIUM 8.5 MG/DL (8.5-10.1); CHLORIDE 106 MMOL/L (99-107); CHOL/HDL RATIO 3.3 (0.00-4.99); CHOLESTEROL 175 MG/DL (0-200); GLUCOSE 104 MG/DL (70-104); HDL CHOLESTEROL 53 MG/DL (35-60); LDL CHOLESTEROL 102 MG/DL (50-100); POTASSIUM 3.8 MMOL/L (3.5-5.1); SODIUM 143 MMOL/L (135-145); TOTAL CARBON DIOXIDE 31.2 MMOL/L (24-32); TOTAL PROTEIN 7.8 G/DL (6.4-8.2); TRIGLYCERIDES 82 MG/DL (20-135)
[2021-05-23 14:35] LABS: CREATININE 0.75 MG/DL (0.40-0.90); eGFR 79 ML/MIN
== END 2021-05-23 23:59 | disposition home or self-care (01) ==
LOC: LAB 09:58
PROVIDERS: ATTEND Family Medicine
DX: E78.2 Mixed hyperlipidemia (principal); R73.09 Other abnormal glucose; I10 Essential (primary) hypertension; D64.9 Anemia, unspecified; R77.9 Abnormality of plasma protein, unspecified
CPT/HCPCS: 36415; 80053; 80061; 81003; 82043; 82570; 84443; 85025

== ENCOUNTER 2022-07-10 12:28 | Emergency (ER) | payer BC ==
[~2022-07-10] VITALS: Ht 167.6 cm; Wt 110.9 kg
[~2022-07-10 12:28] MED LIST changes: +ATOR40TA71 PO; +CYCL1DRO EACHEYE; +LOSA25TA96 PO
[2022-07-10 13:35] VITALS: BP 141/85
[2022-07-10 14:07] LABS: BASOPHILS # (AUTO) 0.1 X10'3 (0-0.2); EOSINOPHILS # (AUTO) 0.4 X10'3 (0-0.9); EOSINOPHILS % (AUTO) 5.1 % (0-6); HEMATOCRIT 43.6 % (35.0-45.0); HEMOGLOBIN 14.9 g/dl (12.0-16.0); LYMPHOCYTES # (AUTO) 1.8 X10'3 (1.1-4.8); LYMPHOCYTES % (AUTO) 23.7 % (21-51); MEAN CORPUSCULAR HGB CONC 34.3 g/dL (33.0-36.5); MEAN CORPUSCULAR VOLUME 81.7 FL (78-98); MEAN PLATELET VOLUME 10.1 FL (7.4-10.4); MONOCYTES # (AUTO) 0.9 X10'3 (0-0.9); MONOCYTES % (AUTO) 11.4 % (2-12); NEUTROPHILS # (AUTO) 4.5 X10'3 (1.8-7.7); NEUTROPHILS % (AUTO) 58.8 % (42-75); PLATELET COUNT 148 X10'3 (140-440); RED BLOOD COUNT 5.34 X10'6 (4.20-5.60); RED CELL DISTRIBUTION WIDTH 14.6 % (11.5-14.5); WHITE BLOOD COUNT 7.6 X10'3 (4.5-11.0)
[2022-07-10 14:12] LABS: ALANINE AMINOTRANSFERASE 38 U/L (12-78); ALBUMIN/GLOBULIN RATIO 1.1 (1.1-1.5); ALKALINE PHOSPHATASE 78 IU/L (46-116); ANION GAP 9 (8-16); ASPARTATE AMINO TRANSFERASE 28 U/L (10-37); BILIRUBIN,TOTAL 0.5 MG/DL (0.1-1.0); BLOOD UREA NITROGEN 18 MG/DL (7-18); BUN/CREATININE RATIO 23.4 (6.6-38.0); C-REACTIVE PROTEIN 0.49 MG/DL (0.0-0.5); CHLORIDE 104 MMOL/L (99-107); CREATININE 0.77 MG/DL (0.40-0.90); GLUCOSE 98 MG/DL (70-104); POTASSIUM 3.8 MMOL/L (3.5-5.1); SODIUM 140 MMOL/L (135-145); TOTAL CARBON DIOXIDE 27.4 MMOL/L (24-32); TOTAL PROTEIN 7.7 G/DL (6.4-8.2); eGFR 76 ML/MIN
[2022-07-10] MEDS ORDERED: VALA100031 PO (16:12)
[2022-07-10] MEDS ORDERED: DULO60CA59 PO (16:12)
== END 2022-07-10 18:03 | disposition home or self-care (01) ==
LOC: ER 12:28
DX: B02.9 Zoster without complications (principal); E03.9 Hypothyroidism, unspecified; Z79.899 Other long term (current) drug therapy
CPT/HCPCS: 36415; 80053; 85025; 85651; 86140; 99283

== ENCOUNTER 2022-07-17 11:22 | Outpatient (CLI) | payer BC ==
[~2022-07-17 11:22] MED LIST changes: +DULO60CA59 PO; +VALA100031 PO
[2022-07-17 12:23] LABS: CHOL/HDL RATIO 5.6 (0.00-4.99); CHOLESTEROL 211 MG/DL (0-200); HDL CHOLESTEROL 38 MG/DL (35-60); LDL CHOLESTEROL 152 MG/DL (50-100); TRIGLYCERIDES 119 MG/DL (20-135)
[2022-07-17 12:46] LABS: HEMOGLOBIN A1C 6.4 % (4.5-6.2)
== END 2022-07-17 23:59 | disposition home or self-care (01) ==
LOC: LAB 11:22
PROVIDERS: ATTEND Family Medicine
DX: E78.2 Mixed hyperlipidemia (principal); D50.8 Other iron deficiency anemias; E83.52 Hypercalcemia; R73.09 Other abnormal glucose
CPT/HCPCS: 36415; 80061; 82043; 82306; 82570; 82607; 83036

== ENCOUNTER 2023-11-19 14:34 | Outpatient (CLI) | payer BC ==
[~2023-11-19 14:34] MED LIST changes: +LOSA-415 PO; -LOSA25TA96 PO
== END 2023-11-19 23:59 | disposition home or self-care (01) ==
LOC: RAD 14:34
PROVIDERS: ATTEND Family Medicine
DX: J98.4 Other disorders of lung (principal); J01.01 Acute recurrent maxillary sinusitis; J20.9 Acute bronchitis, unspecified; R05.9 Cough, unspecified
CPT/HCPCS: 71046

== ENCOUNTER 2025-07-05 12:38 | Outpatient (CLI) | payer BC ==
[2025-07-05 13:22] LABS: MEAN PLATELET VOLUME 10.1 FL (7.4-10.4); RED CELL DISTRIBUTION WIDTH 13.9 % (11.5-14.5)
[2025-07-05 13:39] LABS: CHOL/HDL RATIO 5.3 (0.00-4.99); CREATININE 0.72 MG/DL (0.40-0.90); LDL CHOLESTEROL 169 MG/DL (50-100); TOTAL CARBON DIOXIDE 30.7 MMOL/L (24-32); eGFR 82 ML/MIN
== END 2025-07-05 23:59 | disposition home or self-care (01) ==
LOC: RAD 12:38
PROVIDERS: ATTEND Family Medicine
DX: I10 Essential (primary) hypertension (principal); R79.89 Other specified abnormal findings of blood chemistry; R73.09 Other abnormal glucose; E78.2 Mixed hyperlipidemia; E03.9 Hypothyroidism, unspecified; R77.9 Abnormality of plasma protein, unspecified
CPT/HCPCS: 36415; 80053; 80061; 82043; 82570; 83036; 84439; 84443; 85025